=== PATIENT | female | born 1965 | race American Indian/Alaskan Native ===

== ENCOUNTER 2020-04-09 09:52 | Emergency (ER) | payer SELFPAY ==
[2020-04-09 10:40] VITALS: BP 128/81
--- NOTE | 2020-04-09 10:58 | Emergency Department Report ---
ED General Adult HPI - General Chief complaint: Medical Clearance Stated complaint: LUMP NEAR EAR PUI?: No Source: patient Mode of arrival: Ambulatory Limitations: No Limitations - History of Present Illness Initial comments: 54-year-old -[place] female presents to the emergency room for a lump to the left side of her head right above her ear since . Patient states that the lump has gotten larger and more painful. Patient states she took Tylenol for the pain without much relief. She denies any trauma no fever no chills no nausea no vomiting no headache. Patient does endorse that she has a history of hypertension and prediabetic currently on amlodipine and Metformin. Onset/Timin -: days(s) Location: head Radiation: non-radiation Severity scale (0 -10): 7 Quality: aching, sharp Consistency: constant Improves with: none Worsens with: none Associated Symptoms: denies other symptoms Treatments Prior to Arrival: none - Related Data Home Medications Medication Instructions Recorded Confirmed Last Taken Doxazosin Mesylate [Cardura] 2 mg PO HS 05/27/14 08/07/14 08/06/14 Previous Rx's Medication Instructions Recorded Last Taken Type Topiramate [Topamax] 25 mg PO BID #60 tablet 05/28/14 08/06/14 Rx Aspirin EC [Ecotrin] 325 mg PO QDAY #30 tablet 08/08/14 Unknown Rx AtorvaSTATin 10 mg PO QHS #30 tablet 08/08/14 Unknown Rx Potassium Chloride [K-Dur] 10 meq PO QDAY #30 tablet 08/08/14 Unknown Rx Ibuprofen [Motrin 600 MG tab] 600 mg PO Q8H PRN #30 tablet 04/09/20 Unknown Rx cephALEXin [Keflex] 500 mg PO Q12HR 7 Days #14 cap 04/09/20 Unknown Rx Allergies Allergy/AdvReac Type Severity Reaction Status Date / Time lisinopril Allergy Angioedema Verified 04/09/20 10:36 Sulfa (Sulfonamide Allergy Itching Verified 04/09/20 10:36 Antibiotics) ED Review of Systems ROS: Stated complaint: LUMP NEAR EAR Other details as noted in HPI Comment: All other systems reviewed and negative ED Past Medical Hx - Past Medical History Hx Hypertension: Yes Hx Congestive Heart Failure: No Hx Diabetes: No Hx GERD: Yes (zantac) Hx Asthma: No Hx COPD: No Additional medical history: LEFT EYE PTOSIS - Surgical History Additional Surgical History: left eye surgery when she was 4 years old - Social History Smoking Status: Light Tobacco Smoker - Medications Home Medications: Home Medications Medication Instructions Recorded Confirmed Last Taken Type Doxazosin Mesylate [Cardura] 2 mg PO HS 05/27/14 08/07/14 08/06/14 History Topiramate [Topamax] 25 mg PO BID #60 tablet 05/28/14 08/07/14 08/06/14 Rx Aspirin EC [Ecotrin] 325 mg PO QDAY #30 tablet 08/08/14 Unknown Rx AtorvaSTATin 10 mg PO QHS #30 tablet 08/08/14 Unknown Rx Potassium Chloride [K-Dur] 10 meq PO QDAY #30 tablet 08/08/14 Unknown Rx Ibuprofen [Motrin 600 MG tab] 600 mg PO Q8H PRN #30 tablet 04/09/20 Unknown Rx cephALEXin [Keflex] 500 mg PO Q12HR 7 Days #14 cap 04/09/20 Unknown Rx ED Physical Exam - General Limitations: No Limitations ED Course Vital Signs 04/09/20 04/09/20 10:38 10:40 Temperature 97.7 F Pulse Rate 93 H Respiratory 18 Rate Blood Pressure 128/81 O2 Sat by Pulse 77 L 97 Oximetry ED Medical Decision Making - Medical Decision Making 54-year-old -[place] female presents to the emergency room for a lump to the left side of her head right above her ear since . Patient states that the lump has gotten larger and more painful. Patient states she took Tylenol for the pain without much relief. She denies any trauma no fever no chills no nausea no vomiting no headache. Patient does endorse that she has a history of hypertension and prediabetic currently on amlodipine and Metformin. We will place patient on Keflex 500 mg twice a day for 7 days. Patient to take ibuprofen or Tylenol for pain management. Recommend for follow-up with her primary care provider which is at [facility]. Critical care attestation.: If time is entered above; I have spent that time in minutes in the direct care of this critically ill patient, excluding procedure time. ED Disposition Clinical Impression: Head lump Disposition: - TO HOME OR SELFCARE Is pt being admited?: No Does the pt Need Aspirin: No Condition: Stable Additional Instructions: Complete antibiotics as prescribed. Pain medication as needed. Follow-up with your primary care provider in the next 5 to 7 days if no improvement. Prescriptions: cephALEXin [Keflex] 500 mg PO Q12HR 7 Days #14 cap Ibuprofen [Motrin 600 MG tab] 600 mg PO Q8H PRN #30 tablet PRN Reason: Pain Referrals: [facility] [Outside] - 3-5 Days Forms: Work/School Release Form(ED)
== END 2020-04-09 11:18 | disposition home or self-care (01) ==
LOC: ED 09:52
DX: R22.0 Localized swelling, mass and lump, head (principal); I10 Essential (primary) hypertension; K21.9 Gastro-esophageal reflux disease without esophagitis; F17.200 Nicotine dependence, unspecified, uncomplicated; Z88.2 Allergy status to sulfonamides; Z88.8 Allergy status to other drugs, medicaments and biological substances; Z79.899 Other long term (current) drug therapy; Z98.890 Other specified postprocedural states
CPT/HCPCS: 99281